=== PATIENT | male | born 1945 | race Caucasian/White ===

== ENCOUNTER → 2017-08-07 | Day surgery (SDC) | payer MEDICARE, BC ==
[~2017-08-07] MED LIST: Bupivacaine 0.5% 50 ML MDV ONE; Dexamethasone 4 MG/ML SDV ONE; Glycopyrrolate 0.2 MG/ML 5 ML MDV ONE; Lidocaine 1% with EPINEPHrine 1:100,000 50 ML MDV ONE; Midazolam 1 MG/ML 2 ML SDV ONE; Neostigmine Methylsulfate 1 MG/ML 5 ML Syringe ONE; Ondansetron 4 MG/2 ML SDV ONE; Propofol 200 MG/20 ML SDV ONE; Rocuronium 50 MG/5 ML Vial ONE; Sodium Chloride 0.9% 1,000 ML IV SCH; Succinylcholine 200 MG/10 ML MDV ONE; ceFAZolin 2 GM in Premix Bag 1 BAG IV ONE; ePHEDrine 50 MG/ML SDV ONE; fentaNYL 250 MCG/5 ML SDV ONE; metroNIDAZOLE/Normal Saline 500 MG in Premix Bag 1 BAG IV ONE
--- NOTE | 2017-08-08 14:47 | OR ---
DATE OF PROCEDURE: 08/07/2017 PROCEDURE: Total extraperitoneal hernia, right hernia, indirect. COMPLICATIONS: None. [facility] [facility] [employer]: None. ANESTHESIA: General/local. RISKS: Risks, benefits, alternatives, and limitations including, but not limited to infection, bleeding, injury to testicular structures causing testicular loss, recurrent hernias, chronic wounds, chronic pain, and other risks not listed here. The patient understands these risks and wishes to proceed. PROCEDURE IN DETAIL: The patient was placed in supine position. An infraumbilical midline incision was made approximately 1 cm in size. This was carried down and entered into the fascia. The muscles were then spread. A Pean was used to create the preperitoneal space. The balloon was introduced and pumped approximately 30 times. This was then held in position for 1 minute. The insufflation was then commenced. Two 5-mm ports were also entered under direct visualization. The indirect hernia was identified and reduced. During this process, it was noted that his peritoneum was very thin and wispy. This caused a rent in the peritoneum, which will be then closed with staple and additional Vicryl mesh at the end of the case. Due to this, an additional 5 mm port was placed to remove the peritoneal insufflation. Using the [id number] technique, a blunt dissection was commenced. The "triangle of doom" and the "triangle of pain" were never entered or interacted. Once this was reduced, the mesh would be introduced. This was placed in a [id number] roll out with greater than half of the pubic symphysis being covered. Once this was unrolled, a second piece of Vicryl mesh was used to close the rent previously described. The air was desufflated. The wounds were closed with 3-0 Vicryl and 4-0 Vicryl interrupted running fashion. Dermabond was applied. The patient tolerated the procedure well. Adriano Lam MD /[id number]
== END ==
LOC: JP.SDS 06:16
PROVIDERS: ATTEND Surgery
DX: K40.90 Unilateral inguinal hernia, without obstruction or gangrene, not specified as recurrent (principal); K21.9 Gastro-esophageal reflux disease without esophagitis; F41.9 Anxiety disorder, unspecified; I25.10 Atherosclerotic heart disease of native coronary artery without angina pectoris; E78.5 Hyperlipidemia, unspecified; I50.22 Chronic systolic (congestive) heart failure; E66.3 Overweight; Z79.82 Long term (current) use of aspirin; Z79.899 Other long term (current) drug therapy; J30.2 Other seasonal allergic rhinitis; Z88.1 Allergy status to other antibiotic agents; Z91.030 Bee allergy status; Z87.891 Personal history of nicotine dependence; Z68.25 Body mass index [BMI] 25.0-25.9, adult
CPT/HCPCS: 49650; C1781; J0330; J0690; J1100; J2250; J2405; J2704; J2710; J3010; J7040